=== PATIENT | female | born 1995 | race Caucasian/White ===

== ENCOUNTER 2018-01-24 12:33 | Emergency (ER) | payer OTHER ==
[~2018-01-24] VITALS: Ht 167.6 cm; Wt 65.9 kg
[~2018-01-24 12:33] MED LIST: AMOXICILLIN875 MG PO; BCP TD; LORTAB 5/500 501 TAB PO; NAPROSYN500 MG PO
[2018-01-24] MEDS ORDERED: EPIPEN 2-PAK1 MG/ML IM (13:37)
[2018-01-24] MEDS ORDERED: PREDNISONE20 MG PO (13:37)
[2018-01-24 14:19] VITALS: BP 128/80; TEMP 99.8
[2018-01-24 14:29] VITALS: PULSE 90
== END 2018-01-24 14:30 | disposition home or self-care (01) ==
LOC: COL.ER 12:33
DX: T78.49XA Other allergy, initial encounter (principal)
CPT/HCPCS: J2930

== ENCOUNTER 2018-01-28 14:26 | Emergency (ER) | payer OTHER ==
[~2018-01-28] VITALS: Ht 167.6 cm; Wt 68.2 kg
[~2018-01-28 14:26] MED LIST changes: +EPIPEN 2-PAK1 MG/ML IM; +PREDNISONE20 MG PO
[2018-01-28 14:27] VITALS: BP 119/68; TEMP 98.4
[2018-01-28] MEDS ORDERED: CYTOMEL 5MC5 MCG/TAB (14:42)
[2018-01-28] MEDS ORDERED: CYMBALTA 20MG20 MG PO (14:42)
[2018-01-28] MEDS ORDERED: DEPO-PROVE150 MG/1 M IM (14:42)
[2018-01-28] MEDS ORDERED: LAMICTAL 100MG100 MG (14:43)
[2018-01-28] MEDS ORDERED: ADDERALL30 MG PO (14:43)
[2018-01-28] MEDS ORDERED: REVIA 50MG TABL50 MG PO (14:44)
[2018-01-28] MEDS ORDERED: ATARAX 25MG25 MG/TAB PO (14:57)
[2018-01-28 15:08] VITALS: PULSE 92
== END 2018-01-28 15:08 | disposition home or self-care (01) ==
LOC: COL.ER 14:26
DX: L29.9 Pruritus, unspecified (principal); T78.40XA Allergy, unspecified, initial encounter; F90.9 Attention-deficit hyperactivity disorder, unspecified type